=== PATIENT | female | born 1980 | race African-American/Black ===

== ENCOUNTER 2024-02-22 05:49 | Day surgery (SDC) | payer BC ==
[2024-02-20 15:03] VITALS: BMI 25.6
[2024-02-22 07:18] LABS: Hematocrit 34.1 % (34.9-44.5)
[2024-02-22] MEDS ORDERED: Famotidine/PF 20 mg/2ml Vial ONE (07:43)
[2024-02-22] MEDS ORDERED: Midazolam HCl 2 mg/2 ml Vial ONE (07:43)
[2024-02-22] MEDS ORDERED: Lidocaine 1% w/Epinephrine 1:200K 30 ML VIAL ONE (07:46)
[2024-02-22] MEDS ORDERED: Rocuronium Bromide 10 MG/ML (10ML VIAL) ONE (07:57)
[2024-02-22] MEDS ORDERED: fentaNYL 50 mcg/mL 1 mL Vial ONE ×2 (07:58→09:43)
[2024-02-22] MEDS ORDERED: Lidocaine 2% PF 5 ML VIAL ONE (07:58)
[2024-02-22] MEDS ORDERED: PROPOFOL 20 ML ONE (07:58)
[2024-02-22] MEDS ORDERED: Glycopyrrolate 0.2 MG/ML 5 ML SYRINGE ONE (08:05)
[2024-02-22] MEDS ORDERED: PHENYLEPHRINE-NS 100 MCG/ML 10 ML SYRINGE ONE (08:24)
[2024-02-22] MEDS ORDERED: Ondansetron PF 4 MG/2 ML Vial ONE ×2 (08:34)
[2024-02-22] MEDS ORDERED: Dexamethasone 20 MG/5 ML VIAL ONE (08:34)
[2024-02-22] MEDS ORDERED: Ketorolac Tromethamine 30 MG (1 mL) VIAL ONE (08:34)
[2024-02-22] MEDS ORDERED: SUGAMMADEX SODIUM 200 MG/2 ML VIAL ONE (08:35)
[2024-02-22] MEDS ORDERED: Hydrocodone-Acetamin 15 ML UDCUP ONE (10:02)
== END 2024-02-22 10:50 | disposition home or self-care (01) ==
LOC: CSHSDC 05:49
PROVIDERS: ATTEND Otolaryngology Plastic Surgery within the Head & Neck
PROC: 0GTP0ZZ Resection of Left Inferior Parathyroid Gland, Open Approach (ICD-10-PCS; principal; 2024-02-22)
DX: D34 Benign neoplasm of thyroid gland (principal); E21.3 Hyperparathyroidism, unspecified; J30.2 Other seasonal allergic rhinitis; Z79.890 Hormone replacement therapy; Z79.899 Other long term (current) drug therapy; Z98.890 Other specified postprocedural states
CPT/HCPCS: 85014; 88305; C1889; J1100; J1885; J2250; J2405; J2704; J3010; J3490